=== PATIENT | female | born 1985 ===

== ENCOUNTER 2019-06-17 12:56 | Emergency (ER) | payer OTHER ==
[~2019-06-17] VITALS: Ht 162.6 cm; Wt 149.0 kg
[~2019-06-17 12:56] MED LIST: DOXY1TAB3 PO; LABE100T6 PO; MONT10TA6 PO; PNV1TABL11 PO; RANI-244 PO
[2019-06-17 13:02] VITALS: BP 125/76
--- NOTE | 2019-06-17 13:31 | NUR ---
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 PT REPORTS A STRONG SMELL OF CHEMICALS. NOW C/O TINGLING IN HER FACE, LIGHTHEADEDNESS, DIZZINESS, NAUSEA, AND GENERALIZED WEAKNESS. PT ABLE TO AMBULATE WITHOUT ISSUE AT THIS TIME. PT STATES THAT THIS IS THE THIRD TIME THIS HAS HAPPENED TO HER, AT THE SAME HOME. REPORTS THAT THE EFFECTS HAVE LASTED 24 HOURS OR MORE IN THE PAST. CANT GANG SAWYER AT SIDE REPORTEDLY EXPERIENCED THE SAME SYMPTOMS BUT IS NOT IN THIS ER AT THIS TIME. PT DENIES ANY FURTHER NEEDS OR CONCERNS.
[2019-06-17] MEDS ORDERED: KETOROLAC 30 MG/1 ML ONE (13:58)
[2019-06-17] MEDS ORDERED: METOCLOPRAMIDE 5 MG/ML, 2ML ONE (13:58)
[2019-06-17] MEDS ORDERED: METOCLOPRAMIDE 5 MG/ML, 2ML IVPush ONE (14:00)
[2019-06-17] MEDS ORDERED: KETOROLAC 30 MG/1 ML IVPush ONE (14:00)
--- NOTE | 2019-06-17 14:24 | NUR ---
PT RESTING IN BED, AND FAMILY AT BEDSIDE. IV STARTED, MEDICATIONS GIVEN PER ORDERS. PT DENIES ANY FURTHER NEEDS OR CONCERNS AT THIS TIME.
[2019-06-17 14:28] LABS: BASOPHILS # (AUTO) 0.05 x10^3/uL (0-0.1); BASOPHILS % (AUTO) 1 % (0-1); EOSINOPHILS # (AUTO) 0.13 x10^3/uL (0-0.4); EOSINOPHILS % (AUTO) 2 % (1-7); LYMPHOCYTES % (AUTO) 25 % (22-44); MD NO; MEAN CORPUSCULAR HEMOGLOBIN 29.3 pg (27.0-34.8); MEAN CORPUSCULAR HGB CONC 33.1 g/dL (32.4-35.8); MEAN CORPUSCULAR VOLUME 88.6 fL (80-100); MEAN PLATELET VOLUME 10.8 fL (7.4-10.4); MONOCYTES # (AUTO) 0.34 x10^3/uL (0.2-0.8); MONOCYTES % (AUTO) 4 % (2-9); NEUTROPHILS # (AUTO) 5.78 x10^3/uL (1.8-6.8); NEUTROPHILS % (AUTO) 69 % (42-75); PLATELET COUNT 213 x10^3/uL (130-400); RED BLOOD COUNT 4.62 x10^6/uL (3.82-5.3); RED CELL DISTRIBUTION WIDTH 15.2 % (9.6-15.2)
[2019-06-17 14:32] LABS: ALANINE AMINOTRANSFERASE 34 U/L (12-78); ALBUMIN 3.6 g/dL (3.4-5.0); ANION GAP 8 mmol/L (5-15); CALCIUM 9.1 mg/dL (8.5-10.1); CHLORIDE 109 mmol/L (98-107); CREATININE 0.94 mg/dL (0.55-1.02)
[2019-06-17 14:35] LABS: ALKALINE PHOSPHATASE 72 U/L (45-117); BILIRUBIN,TOTAL 0.6 mg/dL (0.2-1.0); TOTAL PROTEIN 7.4 g/dL (6.4-8.2)
--- NOTE | 2019-06-17 16:46 | NUR ---
TASK RN: Patient/Caregiver given discharge instructions and they have confirmed that they understand the instructions. Patient ambulatory with steady gait.
== END 2019-06-17 16:47 | disposition home or self-care (01) ==
LOC: ED 16:19
DX: E87.6 Hypokalemia (principal); R11.0 Nausea; F31.9 Bipolar disorder, unspecified; I10 Essential (primary) hypertension; Z87.891 Personal history of nicotine dependence
CPT/HCPCS: 36415; 80053; 82375; 85025; 93005; 96374; 96375; 99284; J1885; J2765